=== PATIENT | female | born 1980 | race Caucasian/White ===

== ENCOUNTER 2016-09-29 12:04 | Emergency (ER) | payer MEDICAID ==
[~2016-09-29] VITALS: Ht 160 cm; Wt 54.5 kg
[~2016-09-29 12:04] MED LIST: PERC5TAB12 PO
[2016-09-29 12:05] VITALS: BP 104/71; PULSE 78; RESP 20; TEMP 99.1; O2SAT 99
[2016-09-29] MEDS ORDERED: MULT1TAB84 PO (12:26)
[2016-09-29] MEDS ORDERED: LEVO.075 PO (12:26)
[2016-09-29 13:32] LABS: BETA HCG QUANT 126659 MIU/ML (0-5)
[2016-09-29 13:41] LABS: BASOPHIL # 0.1 TH/MM3 (0-0.2); BASOPHIL % 1.2 % (0.0-2.0); EOSINOPHIL # 0.5 TH/MM3 (0-0.4); EOSINOPHIL % 8.3 % (0.0-4.0); HEMATOCRIT 30.5 % (35.0-46.0); HEMO FLAGS DIFF FINAL; LYMPH % 30.7 % (9.0-44.0); LYMPHOCYTE # 1.7 TH/MM3 (1.0-4.8); MEAN CELL VOLUME 103.5 FL (80.0-100.0); MEAN CORPUSCULAR HEMOGLOBIN 34.8 PG (27.0-34.0); MEAN CORPUSCULAR HGB CONC 33.6 % (32.0-36.0); MONO % 5.8 % (0.0-8.0); PLATELET COUNT 176 TH/MM3 (150-450); RED BLOOD COUNT 2.94 MIL/MM3 (4.00-5.30); RED CELL DISTRIBUTION WIDTH 13.8 % (11.6-17.2); WHITE BLOOD COUNT 5.5 TH/MM3 (4.0-11.0)
[2016-09-29 13:48] LABS: BLOOD, URINE NEG (NEG); GLUCOSE,URINE NEG (NEG); KETONE, URINE NEG (NEG); NITRITE,URINE NEG (NEG); SQUAMOUS EPITHELIAL CELL URINE 1 /hpf (0-5); URINE COLOR LIGHT-YELLOW (YELLW/STRAW)
[2016-09-29 13:50] LABS: COMMENT (UR) CULT NOT INDICATED; CULTURE IF INDICATED CULT NOT INDICATED
--- NOTE | 2016-09-29 13:52 | PD ---
HPI Chief Complaint: Related Problem Time Seen by Provider: 12:50 Travel History International Travel<30 days: No Contact w/Intl Traveler<30days: No Traveled to known affect area: No History of Present Illness HPI Patient's 36-year-old female presenting to emergency for evaluation of abdominal pain and cramping, vaginal bleeding. Patient reports she is 8 weeks . She reports spotting intermittently for the last week, she states that she has passed clots but they were small. Patient presents today due to the increased pain in her left lower pelvis and suprapubic region. Patient states she also has significant pain in her back. Patient reports pain is a 10 out of 10. Patient also reports feeling very drained and tired. Patient previous ectopic in 2014, she did not have an oophorectomy at that time. Patient is A2. PFSH Past Medical History Blood Disorders: No Cancer: No Cardiovascular Problems: No High Cholesterol: No Congestive Heart Failure: No Diabetes: No Endocrine: Yes Gastrointestinal Disorders: Yes Genitourinary: No Hypertension: No Immune Disorder: No Implanted Vascular Access Dvce: No Medical other: Yes (stage II kidney disease) Musculoskeletal: No Neurologic: No Psychiatric: No Reproductive: Yes (HPV) Respiratory: No Immunizations Current: No Thyroid Disease: Yes (HYPO) ?: LMP: 07/29/16 : 5 Para: 2 Miscarriage: 2 Ectopic : Yes Past Surgical History Section: Yes Ear Surgery: Yes (EYE LID X4) Other Surgery: Yes ( X2, RIGHT EYELID) Social History Alcohol Use: No Tobacco Use: Yes Substance Use: No Allergies-Medications (Allergen,Severity, Reaction): Coded Allergies: Latex (Verified Allergy, Severe, Rash, 09/29/16) Reported Meds & Prescriptions Reported Meds & Active Scripts Active Zofran Odt (Ondansetron Odt) 4 Mg Tab 4 Mg SL Q6HR PRN 5 Days Plus Iron 29-1 mg ( Vit-Iron Carbonyl) 1 Tab Tab 1 Tab PO DAILY Reported Multivitamin Adults (Multiple Vitamins W/ Minerals) 1 Tab 1 Tab PO DAILY Synthroid (Levothyroxine Sodium) 75 Mcg Tab 75 Mcg PO DAILY Review of Systems Except as stated in HPI: all other systems reviewed are Neg Gastrointestinal: Positive: Abdominal Pain Genitourinary: Positive: Pelvic Pain, Vaginal Bleeding Physical Exam Narrative GENERAL: Well developed, well-nourished, alert female. Resting comfortably in no acute distress. SKIN: Focused skin assessment warm/dry. HEAD: Atraumatic. Normocephalic. EYES: Pupils equal and round. No scleral icterus. No injection or drainage. ENT: No nasal bleeding or discharge. Mucous membranes pink and moist. NECK: Trachea midline. No JVD. CARDIOVASCULAR: Regular rate and rhythm. No murmur appreciated. RESPIRATORY: No accessory muscle use. Clear to auscultation. Breath sounds equal bilaterally. GASTROINTESTINAL: Abdomen soft, tender to palpation suprapubic region, no rebound, no guarding. Hepatic and splenic margins not palpable. MUSCULOSKELETAL: No obvious deformities. No clubbing. No cyanosis. No edema. NEUROLOGICAL: Awake and alert. No obvious cranial nerve deficits. Motor grossly within normal limits. Normal speech. GENITOURINARY: Normal external genitalia without lesions or erythema. Vaginal vault with trace amounts of blood, cervical os is open with bloody/serous sanguinous drainage No cervical motion tenderness. Uterus tender and enlarged. Right adnexa nontender without masses. Left adnexa tender and feels enlarged. PSYCHIATRIC: Appropriate mood and affect; insight and judgment normal. Data Data Last Documented VS Vital Signs Date Time Temp Pulse Resp B/P Pulse Ox O2 Delivery O2 Flow Rate FiO2 09/29/16 12:27 71 18 09/29/16 12:05 99.1 104/71 99 Room Air Orders Beta Hcg (Quant/Titer) (09/29/16 12:37) Ed Poc Ultrasound (09/29/16 ) Complete Blood Count With Diff (09/29/16 12:51) Comprehensive Metabolic Panel (09/29/16 12:51) Urinalysis - C+S If Indicated (09/29/16 12:51) Wet Prep Profile (09/29/16 13:08) Gc And Chlamydia Pcr (09/29/16 13:08) Ondansetron Inj (Zofran Inj) (09/29/16 14:45) Sodium Chlor 0.9% 1000 Ml Inj (Ns 1000 M (09/29/16 14:45) Us Pelvis (Ques Pr/Ect)W Trans (09/29/16 ) Abo/Rh Blood Type (09/29/16 14:45) Labs Laboratory Tests Test 4/2309/29/16 09/29/16 09/29/16 12:44 13:11 13:19 14:45 Sodium Level 138 MEQ/L Potassium Level 3.8 MEQ/L Chloride Level 106 MEQ/L Carbon Dioxide Level 21.8 MEQ/L Anion Gap 10 MEQ/L Blood Urea Nitrogen 9 MG/DL Creatinine 0.76 MG/DL Estimat Glomerular Filtration 85 ML/MIN Rate Random Glucose 68 MG/DL Calcium Level 9.0 MG/DL Total Bilirubin 0.2 MG/DL Aspartate Amino Transf 21 U/L (AST/SGOT) Alanine Aminotransferase 19 U/L (ALT/SGPT) Alkaline Phosphatase 34 U/L Total Protein 7.2 GM/DL Albumin 3.9 GM/DL Human Chorionic Gonadotropin, 179527 MIU/ML Quant White Blood Count 5.5 TH/MM3 Red Blood Count 2.94 MIL/MM3 Hemoglobin 10.2 GM/DL Hematocrit 30.5 % Mean Corpuscular Volume 103.5 FL Mean Corpuscular Hemoglobin 34.8 PG Mean Corpuscular Hemoglobin 33.6 % Concent Red Cell Distribution Width 13.8 % Platelet Count 176 TH/MM3 Mean Platelet Volume 8.6 FL Neutrophils (%) (Auto) 54.0 % Lymphocytes (%) (Auto) 30.7 % Monocytes (%) (Auto) 5.8 % Eosinophils (%) (Auto) 8.3 % Basophils (%) (Auto) 1.2 % Neutrophils # (Auto) 3.0 TH/MM3 Lymphocytes # (Auto) 1.7 TH/MM3 Monocytes # (Auto) 0.3 TH/MM3 Eosinophils # (Auto) 0.5 TH/MM3 Basophils # (Auto) 0.1 TH/MM3 CBC Comment DIFF FINAL Differential Comment Clue Cells (Wet Prep) NONE SEEN Vaginal Trichomonas (Wet Prep) NONE SEEN Vaginal Yeast (Wet Prep) NONE SEEN Chlamydia trachomatis DNA NOT DETECTED (PCR) Neisseria gonorrhoeae DNA NOT DETECTED (PCR) Urine Color LIGHT-YELLOW Urine Turbidity CLEAR Urine pH 7.0 Urine Specific [place] 1.003 Urine Protein NEG mg/dL Urine Glucose (UA) NEG mg/dL Urine Ketones NEG mg/dL Urine Occult Blood NEG Urine Nitrite NEG Urine Bilirubin NEG Urine Urobilinogen LESS THAN 2.0 MG/DL Urine Leukocyte Esterase NEG Urine Squamous Epithelial 1 /hpf Cells Microscopic Urinalysis Comment CULT NOT INDICATED Blood Type A POSITIVE Blood Bank Comment [facility] Medical Decision Making Medical Screen Exam Complete: Yes Emergency Medical Condition: Yes Medical Record Reviewed: Yes Interpretation(s) Laboratory Tests Test 09/29/16 09/29/16 09/29/16 09/29/16 12:44 13:11 13:19 14:45 Sodium Level 138 MEQ/L Potassium Level 3.8 MEQ/L Chloride Level 106 MEQ/L Carbon Dioxide Level 21.8 MEQ/L Anion Gap 10 MEQ/L Blood Urea Nitrogen 9 MG/DL Creatinine 0.76 MG/DL Estimat Glomerular Filtration 85 ML/MIN Rate Random Glucose 68 MG/DL Calcium Level 9.0 MG/DL Total Bilirubin 0.2 MG/DL Aspartate Amino Transf 21 U/L (AST/SGOT) Alanine Aminotransferase 19 U/L (ALT/SGPT) Alkaline Phosphatase 34 U/L Total Protein 7.2 GM/DL Albumin 3.9 GM/DL Human Chorionic Gonadotropin, 799351 MIU/ML Quant White Blood Count 5.5 TH/MM3 Red Blood Count 2.94 MIL/MM3 Hemoglobin 10.2 GM/DL Hematocrit 30.5 % Mean Corpuscular Volume 103.5 FL Mean Corpuscular Hemoglobin 34.8 PG Mean Corpuscular Hemoglobin 33.6 % Concent Red Cell Distribution Width 13.8 % Platelet Count 176 TH/MM3 Mean Platelet Volume 8.6 FL Neutrophils (%) (Auto) 54.0 % Lymphocytes (%) (Auto) 30.7 % Monocytes (%) (Auto) 5.8 % Eosinophils (%) (Auto) 8.3 % Basophils (%) (Auto) 1.2 % Neutrophils # (Auto) 3.0 TH/MM3 Lymphocytes # (Auto) 1.7 TH/MM3 Monocytes # (Auto) 0.3 TH/MM3 Eosinophils # (Auto) 0.5 TH/MM3 Basophils # (Auto) 0.1 TH/MM3 CBC Comment DIFF FINAL Differential Comment Clue Cells (Wet Prep) NONE SEEN Vaginal Trichomonas (Wet Prep) NONE SEEN Vaginal Yeast (Wet Prep) NONE SEEN Chlamydia trachomatis DNA NOT DETECTED (PCR) Neisseria gonorrhoeae DNA NOT DETECTED (PCR) Urine Color LIGHT-YELLOW Urine Turbidity CLEAR Urine pH 7.0 Urine Specific [place] 1.003 Urine Protein NEG mg/dL Urine Glucose (UA) NEG mg/dL Urine Ketones NEG mg/dL Urine Occult Blood NEG Urine Nitrite NEG Urine Bilirubin NEG Urine Urobilinogen LESS THAN 2.0 MG/DL Urine Leukocyte Esterase NEG Urine Squamous Epithelial 1 /hpf Cells Microscopic Urinalysis Comment CULT NOT INDICATED Blood Type A POSITIVE Blood Bank Comment Last Impressions Pelvis Ultrasound 09/29/16 0000 Signed Impressions: Service Date/Time: Thursday, September 29, 2016 14:08 - CONCLUSION: 1. Viable intrauterine dated between 8 and 9 weeks. 2. Mild free fluid in the cul-de-sac and right adnexa. Probable corpus luteum on the right. Guru Gray MD Vital Signs Date Time Temp Pulse Resp B/P Pulse Ox O2 Delivery O2 Flow Rate FiO2 09/29/16 12:27 71 18 09/29/16 12:05 99.1 78 20 104/71 99 Room Air Differential Diagnosis Completed versus ectopic versus threatened versus UTI versus STD versus other Narrative Course Patient is a 28-year-old female presenting to emergency room for evaluation of spotting and abdominal cramping for the last week. Patient reports she is 8 weeks . Labs, imaging ordered and pending. Patient's vital signs are stable. Pelvic exam shows a scant amount of dried blood in vaginal vault. CBC with a mild anemia with a hemoglobin of 10.2 History is unremarkable HCG levels greater than 12,000 which would be consistent of report being 8 weeks . Pelvic ultrasound shows intrauterine with heart tones at 159. Discussed results with my attending physician and patient. Patient was encouraged follow-up with her paving crew foreman next week as scheduled. She is advised to return to emergency department immediately if she had any further bleeding or increased abdominal pains or new or worsening symptoms. Patient verbalized understanding of these instructions. Patient was given prescriptions for vitamins as well as Zofran. Discussed with patient that Zofran could potentially harm the fetus however there is conflicting data and only use if absolutely necessary. Patient verbalized understanding of these instructions. Patient is stable for discharge. Diagnosis Primary Impression: Intrauterine Referrals: School Bus Monitor 1 week Patient Instructions: First Trimester (ED), General Instructions, Nausea and Vomiting in (ED) Additional Instructions: Follow-up with her paving crew foreman as scheduled Return to emergency department for any new or worsening symptoms Take medications as directed Med/Other Pt SpecificInfo: Prescription(s) given Scripts Ondansetron Odt (Zofran Odt)4 Mg Tab4 Mg SL Q6HR PRN (Nausea/Vomiting) 5 Days Ref 0 Prov:Yareli Rodriguez 09/29/16 Vit-Iron Carbonyl ( Plus Iron 29-1 mg)1 Tab Tab1 Tab PO DAILY #30 TAB Ref 0 Prov:Yareli Rodriguez 09/29/16 Disposition: 01 DISCHARGE HOME Condition: Stable Yareli Rodriguez Sep 29, 2016 13:51
[2016-09-29 13:53] LABS: ANION GAP 10 MEQ/L (5-15); AST (GOT) 21 U/L (15-37); BICARBONATE 21.8 MEQ/L (21.0-32.0); BLOOD UREA NITROGEN 9 MG/DL (7-18); CHLORIDE 106 MEQ/L (98-107); GLOMERULAR FILTRATION RATE 85 ML/MIN (>89); POTASSIUM 3.8 MEQ/L (3.5-5.1); SODIUM (NA) 138 MEQ/L (136-145)
[2016-09-29 13:56] LABS: ALKALINE PHOSPHATASE 34 U/L (45-117); ALT (GPT) 19 U/L (10-53); TOTAL BILIRUBIN ADULT 0.2 MG/DL (0.2-1.0)
[2016-09-29] MEDS ORDERED: ONDANSETRON HCL 4 MG/2 ML VIAL IV PUSH ONE (14:45)
[2016-09-29] MEDS ORDERED: SODIUM CHLOR 0.9% 1000 ML INJ 1,000 ML IV ONE (14:45)
[2016-09-29 15:24] LABS: CHLAMYDIA PCR NOT DETECTED (NOT DETECT); NEISSERIA PCR NOT DETECTED (NOT DETECT)
--- NOTE | 2016-09-29 15:25 | RADRPT ---
EXAM DATE/TIME: 09/29/2016 14:08 [place] COMPARISON: US PELVIS ([facility] PREG/ECTOPIC), December 24, 2014, 22:27. INDICATIONS : Pelvic pain. LAB(S): Beta-hC,659 MEDICAL HISTORY : . Hypothyroidism. Ectopic . UTI. Kidney disease. SURGICAL HISTORY : section. ENCOUNTER: Initial ACUITY: 4-6 days PAIN SCORE: 6/10 LOCATION: Bilateral pelvis MEASUREMENTS: UTERUS: 10.0 x 5.9 x 8.1 cm ENDOMETRIAL STRIPE: 17 mm RIGHT OVARY: 3.3 x 1.9 x 3.5 cm LEFT OVARY: 3.0 x 1.3 x 1.3 cm FREE FLUID: Yes Right adnexa and cul-de-sac. CROWN RUMP LENGTH: 1.9 cm = 8 WKS 3 DAYS FINDINGS: Intrauterine is identified. The gestational sac measures 3.5 cm in width and the crown-rum p length is 1.9 cm. This is characteristic of an 8-9 weeks gestation. heart rate of 159 beats per minute is documented by Doppler. A yolk sac is identified. The placenta is anterior. There is a hypoechoic area at the junction the gestational sac and placenta measuring 1.7 x 1.8 cm is nonspec ific, but could represent a subchorionic bleed. Within the right ovary, there is an oval intermediate echotexture area measuring 1.9 x 1.4 cm with th rough transmission. This could represent corpus luteum. Several small cysts in the left ovary. The re is a mild amount of free fluid in the cul-de-sac and right adnexa. CONCLUSION: 1. Viable intrauterine dated between 8 and 9 weeks. 2. Mild free fluid in the cul-de-sac and right adnexa. Probable corpus luteum on the right. Guru Gray MD on September 29, 2016 at 15:18 Board Certified Radiologist. This report was verified electronically.
[2016-09-29] MEDS ORDERED: ZOFR4TAB3 SL (15:34)
[2016-09-29] MEDS ORDERED: PREN29TA PO (15:34)
== END 2016-09-29 16:12 | disposition home or self-care (01) ==
LOC: NEPE 12:04
DX: O26.891 Other specified pregnancy related conditions, first trimester (principal); R10.2 Pelvic and perineal pain; Z3A.08 8 weeks gestation of pregnancy
CPT/HCPCS: 76700; 76817; 80053; 81001; 84702; 85025; 86900; 86901; 87210; 87491; 87591; 96374; 99284; J2405; J7030